=== PATIENT | male | born 1940 | race Caucasian/White ===

== ENCOUNTER 2016-11-04 21:26 | Emergency (ER) | payer MEDICARE, OTHER ==
[~2016-11-04 21:26] MED LIST: BABY ASPIRIN81 MG; BACTRIM DS TAB1 EAC2 PO; FISH OIL 11000 MG/CA PO; FLOMAX0.4 M1 PO; FLONASE ALLERG9.9 ML INH; MUCINEX600 M1 PO; NO HOME MEDS; OMEPRAZOLE20 M4 PO; PROCTOZONE-HC30 G2 TOP; SPECTRAVITE SE1 EACH PO; VITAMIN C500 M3 PO; VITAMIN D31000 UNI3 PO
== END 2016-11-04 22:09 ==
LOC: EDMED 21:26
DX: Z48.01 Encounter for change or removal of surgical wound dressing (principal); R53.83 Other fatigue